=== PATIENT | female | born 1980 | race Caucasian/White ===

== ENCOUNTER → 2023-09-13 | Outpatient (CLI) | payer OTHER ==
[~2023-09-13] MED LIST: ALBU90OI INH; CEPH500 PO; CLOB.05TC TP; CLOB.05TO TP; DOXY100 PO; FLUC150A PO; HYDACE5 PO; HYDGUAL120 PO; IBUP600 PO; NEOPOLHCSU OT; OXYACE5T PO; PRED20 PO; PROACE100 PO; SULTRIDS PO; TETR250 PO; TRIA80TC TOP
[2023-09-13 19:24] LABS: BASOPHILS ABSOLUTE AUTO 0.04 K/mm3 (0.00-0.23); BASOPHILS PERCENT AUTO 1 % (0-2); EOSINOPHILS ABSOLUTE AUTO 0.07 K/mm3 (0.00-0.68); EOSINOPHILS PERCENT AUTO 1 % (0-6); Hematocrit 44.9 % (33.0-51.0); Hemoglobin 15.3 g/dL (11.5-16.0); IMMATURE GRAN ABSOLUTE AUTO 0.01 K/mm3 (0.00-0.10); IMMATURE GRAN PERCENT AUTO 0 % (0-1); LYMPHOCYTES PERCENT AUTO 31 % (21-46); MONOCYTES ABSOLUTE AUTO 0.38 K/mm3 (0.16-1.47); MONOCYTES PERCENT AUTO 5 % (4-13); Mean Corpuscular HGB 29.8 pg (26.0-34.0); Mean Corpuscular HGB Conc 34.1 g/dL (31.5-36.5); Mean Corpuscular Volume 88 fL (80-100); Mean Platelet Volume 11.7 fL (9.1-12.4); NEUTROPHILS ABSOLUTE AUTO 4.71 K/mm3 (1.96-9.15); NEUTROPHILS PERCENT AUTO 63 % (41-73); Platelet Count 399 K/mm3 (150-400); RDW Standard Deviation 41.9 fL (35.1-46.3); Red Blood Cell Count 5.13 M/mm3 (3.80-5.20); White Blood Cell Count 7.51 K/mm3 (4.00-11.30)
[2023-09-13 19:46] LABS: CHOL/HDL RATIO 4.1; Cholesterol 184 mg/dL (50-200); HDL Cholesterol 45 mg/dL (>39); LDL/HDL RATIO 2.5; Low Density Lipoprotein Chol 110 mg/dL (0-110); Triglycerides 143 mg/dL (30-160); Very Low Density Lipoprot Chol 28 mg/dL (6-32)
[2023-09-13 19:49] LABS: Thyroid Stimulating Hormone 0.663 uIU/mL (0.360-4.800)
[2023-09-15 08:12] LABS: A/G RATIO 1.8 (1.2-2.2); BILIRUBIN, TOTAL 0.3 mg/dL (0.0-1.2); CALCIUM, SERUM 9.8 mg/dL (8.7-10.2); CREATININE, SERUM 0.8 mg/dL (0.57-1.00); GLOBULIN, TOTAL 2.9 g/dL (1.5-4.5); POTASSIUM, SERUM 4.3 mmol/L (3.5-5.2)
[2023-09-16 11:23] LABS: ANTI-NUCLEAR AB ANA,IGG ELISA Detected (None Detected)
[2023-09-17 14:25] LABS: ANTINUCLEAR AB (ANA),HEP-2,IGG Detected (<1:80)
[2023-09-17 14:26] LABS: ANA PATTERN Speckled
[2023-09-17 23:09] LABS: SMITH/RNP (ENA) AB, IGG 7 Units (0-19)
[2023-09-18 04:40] LABS: JO-1 HISTIDYL-TRNA SYNTHET,IGG 1 AU/mL (0-40); SCLERODERMA (SCL-70) AB,IGG 3 AU/mL (0-40); SMITH (ENA) ANTIBODY, IGG 3 AU/mL (0-40); SSA-52 (RO52) (ENA) AB, IGG 7 AU/mL (0-40); SSA-60 (RO60) (ENA) AB, IGG 4 AU/mL (0-40); SSB (LA) (ENA) ANTIBODY, IGG 0 AU/mL (0-40)
[2023-09-18 20:29] LABS: DOUBLE-STRANDED DNA IGG ELISA 13 IU (0-24)
== END | disposition home or self-care (01) ==
LOC: LAB 17:45 → LAB SHORT 17:45
PROVIDERS: Family Medicine
DX: R21 Rash and other nonspecific skin eruption (principal); Z79.899 Other long term (current) drug therapy
CPT/HCPCS: 80053; 80061; 82306; 83036; 84443; 85025; 86038; 86039; 86141; 86225; 86235